=== PATIENT | male | born 1970 | race Caucasian/White ===

== ENCOUNTER 2018-03-11 10:02 | Emergency (ER) | payer MEDICARE ==
[2018-03-11 10:30] LABS: BASOPHILS 0.3 % (0-2); EOSINOPHILS 0.2 % (0-7); HEMATOCRIT 46.4 % (42.0-54.0); HEMOGLOBIN 16.5 g/dL (13.5-17.5); IMMATURE GRANULOCYTES 0.2 % (0-5); LYMPHOCYTES 22.8 % (15-50); MCH 34.2 pg (26.0-34.0); MCHC 35.6 g/dL (31.0-37.0); MCV 96.3 fL (80.0-100.0); MEAN PLATELET VOLUME 10.3 fL (7.4-10.4); MONOCYTES 4.9 % (2-11); NEUTROPHILS 71.6 % (40-80); PLATELET COUNT 231 10x3/uL (130-400); RBC 4.82 10x6/uL (4.20-6.10); RDW 12.8 % (11.5-14.5); WBC 10.1 10x3/uL (4.8-10.8)
[2018-03-11 11:07] LABS: ALBUMIN 4.1 g/dL (3.4-5.0); BILIRUBIN - TOTAL 0.88 mg/dL (0.2-1.3); CALCIUM 9.2 mg/dL (8.5-10.1); CARBON DIOXIDE 29.4 mmol/L (21.0-32.0); CREATININE - SERUM 1.2 mg/dL (0.6-1.3); POTASSIUM - SERUM 4.4 mmol/L (3.5-5.1)
[2018-03-11 11:39] LABS: APPEARANCE HAZY (CLEAR); BILIRUBIN NEGATIVE (NEGATIVE); COLOR YELLOW (YELLOW); GLUCOSE NEGATIVE (NEGATIVE); KETONE NEGATIVE (NEGATIVE); NITRITE NEGATIVE (NEGATIVE); PROTEIN TRACE mg/dL (NEGATIVE); SPECIFIC GRAVITY 1.015 (1.005-1.020); UDS - AMPHET NEGATIVE QUAL (NEGATIVE); UDS - BARB NEGATIVE QUAL (NEGATIVE); UDS - BENZO POSITIVE QUAL (NEGATIVE); UDS - COCAINE NEGATIVE QUAL (NEGATIVE); UDS - OPIATE POSITIVE QUAL (NEGATIVE); UDS - PCP NEGATIVE QUAL (NEGATIVE); UDS - THC NEGATIVE QUAL (NEGATIVE); UROBILINOGEN NORMAL (NORMAL)
[2018-03-11 11:43] LABS: BACTERIA FEW /hpf (NONE SEEN); EPITHELIAL CELLS 0-5 /hpf (0-5); HYALINE CAST OCC /lpf (NONE SEEN); MUCUS >1+ /lpf (NONE SEEN); RED CELLS - URINE OCC /hpf (0-5); WHITE CELLS - URINE RARE /hpf (0-5)
== END 2018-03-11 12:10 | disposition home or self-care (01) ==
LOC: D.ER 10:02
PROVIDERS: Emergency Medicine
DX: R55 Syncope and collapse (principal); I10 Essential (primary) hypertension; F17.200 Nicotine dependence, unspecified, uncomplicated

== ENCOUNTER 2019-03-30 14:24 | Emergency (ER) | payer MEDICARE ==
[~2019-03-30] VITALS: Ht 180.3 cm; Wt 96.4 kg
[2019-03-30 14:37] VITALS: Ht 180.3 cm; Wt 96.4 kg
[2019-03-30] MEDS ORDERED: BUPROPION HCL100 MG PO (14:38)
[2019-03-30] MEDS ORDERED: EFFEXOR75 MG PO (14:38)
[2019-03-30] MEDS ORDERED: OXYCONTIN15 MG PO (14:39)
[2019-03-30] MEDS ORDERED: NORVASC5 MG PO (14:39)
[2019-03-30] MEDS ORDERED: HYDROCHLOROTHIA25 MG PO (14:39)
[2019-03-30 15:57] VITALS: BP 151/78
== END 2019-03-30 16:00 | disposition left against medical advice (07) ==
LOC: D.ER 14:24
DX: R55 Syncope and collapse (principal)

== ENCOUNTER → 2019-04-07 08:49 | Outpatient (CLI) | payer MEDICARE ==
[2019-03-30 14:37] VITALS: BMI 29.6
--- NOTE | ~2019-04-07 | ST ---
PATIENT:YUVAL LAUGHLIN MEDICAL RECORD: [id number] SEX: M LOCATION:[facility] ORDER #: ADMISSION DATE: 04/07/19 AGE OF PATIENT: 49 REFERRING PHYSICIAN: INTERPRETING PHYSICIAN: BAM AGUIRRE MD DATE OF SERVICE: 04/07/2019 NUCLEAR STRESS TEST INDICATION: Syncope, hypertension. He was exercised on standard Lexiscan protocol with 27 mCi of sestamibi injected at peak stress; 9 mCi were used previously for rest images. FINDINGS: Gated SPECT reveals preserved ejection fraction at 55% with good wall motioning and thickening and brightening throughout all segments. SPECT imaging Cardiolite was used as myocardial fusion agent. There is reversibility inferiorly. This includes the basal, mid, apical, and inferior segments. The degree of reversibility is moderate. The amount of myocardial involved is small to moderate. OVERALL IMPRESSION: This is an abnormal nuclear stress test with a moderate amount of reversibility inferiorly. The myocardium involved is small to moderate placing this in the low to intermediate range for risk of future events, but ejection fraction preserved at 55%. In this patient optimize medical therapy, proceed with coronary angiography if symptomatology continues. TRANSINT:[id number] Voice Confirmation ID: [id number] DOCUMENT ID: [id number] BAM AGUIRRE MD CC: DESTINY WINN [id number] DICTATION DATE: 04/08/19 0935 INDUSTRIAL PRODUCTION MANAGER: 04/09/19 0113 [facility] CLI 04/07/19 [place] [id number] [place] [address]
[~2019-04-07 08:49] MED LIST: BUPROPION HCL100 MG PO; EFFEXOR75 MG PO; HYDROCHLOROTHIA25 MG PO; NORVASC5 MG PO; OXYCONTIN15 MG PO
== END | disposition home or self-care (01) ==
LOC: D.HCCARDIO 08:49
PROVIDERS: ATTEND Internal Medicine Interventional Cardiology
DX: I25.10 Atherosclerotic heart disease of native coronary artery without angina pectoris (principal)

== ENCOUNTER → 2019-04-08 14:13 | Outpatient (CLI) | payer MEDICARE ==
[2019-03-30 14:37] VITALS: BMI 29.6
--- NOTE | 2019-04-12 12:26 | EC ---
PATIENT:YUVAL LAUGHLIN DATE OF SERVICE: 04/08/19 SEX: M MEDICAL RECORD: [id number] DATE OF : 70 LOCATION:[facility] [place] AGE OF PATIENT: 49 ADMISSION DATE: 04/08/19 REFERRING PHYSICIAN: INTERPRETING PHYSICIAN: BRANDON RICHARD MD ECHOCARDIOGRAM REPORT ECHO CHARGES 4 ECHO COMPLETE Date: 04/08/19 CLINICAL DIAGNOSIS: SYNCOPE/CAD ECHOCARDIOGRAPHIC MEASUREMENTS (adult normal given) AC root (d.<3.7cm) 3.0 cm LV Septum d (<1.2 cm> 1.2 cm Valve Excursion 1.5 cm LV Septum (systole) 1.5 cm Left Atria (s.<4.0cm> 3.7 cm LVPW d(<1.2cm) 1.4 cm RV (d.<2.3cm) 4.0 cm LVPW (sytole) 1.8 cm LV diastole(<5.6CM) 5.0 cm MV E-F(>70mm/sec) cm LV systole 3.1 cm LVOT Diameter 1.9 cm MV exc.(>10mm) 1.6 cm Est.ejection fraction (50-75%) % DOPPLER: LVIT cm/sec A 81.0 cm/sec E 107 cm/sec LA cm/sec RVSP 26 mmHg LVOT 126 cm/sec AOP1/2T m/s Asc. Ao 166 cm/sec RVOT 85 cm/sec RA cm/sec PA 119 cm/sec AV Gradient Peak 11.09mmHg AV Mean 5.64 mmHg AV Area 2.1 cm MV Gradient Peak 4.78 mmHg MV Mean 2.24 mmHg MV Area cm COMMENTS: Sample Mounter: 2 FINA CARRION Log Marker: 3 Dr. Killian TAPE# PACS Pericardial Effusion N DATE OF SERVICE: 04/08/2019 Adequate 2-D echo, color-flow and spectral Doppler, and M-mode. No LVH. LV internal dimensions are normal. Wall motion is normal. EF is greater than or equal to 55%. Aortic valve is tricuspid. No evidence of stenosis by Doppler interrogation. Left atrium is normal. Mitral valve shows no prolapse. Trace MR. Right-sided chambers are grossly normal. Trace TR. TRANSINT:[id number] Voice Confirmation ID: [id number] DOCUMENT ID: [id number] ECHOCARDIOGRAM REPORT [id number] YUVAL LAUGHLIN,BRANDON Mauro MD at 1226 CC: [id number] DICTATION DATE: 04/11/19 145 SHEET MANAGER: 04/11/19 1645 [facility] CLI 04/08/19 [place] [id number] [place] [id number]
== END | disposition home or self-care (01) ==
LOC: D.HCCARDIO 14:13
PROVIDERS: ATTEND Internal Medicine Interventional Cardiology
DX: I20.9 Angina pectoris, unspecified (principal)